=== PATIENT | male | born 1965 | race African-American/Black ===

== ENCOUNTER 2024-11-05 10:15 | Emergency (ER) | payer OTHER ==
[~2024-11-05] VITALS: Ht 177.8 cm; Wt 80.0 kg
[2024-11-05 10:19] VITALS: O2SAT 99
[2024-11-05 10:45] LABS: BASOPHILS % 0.3 % (0.0-2.0); EOSINOPHILS % 3.1 % (0.0-5.0); HEMATOCRIT. 45.3 % (42.0-52.0); HEMOGLOBIN. 14.6 g/dL (14.0-18.0); LYMPHOCYTES % 33.9 % (20.0-50.0); MEAN CORPUSCULAR HEMOGLOBIN 29.2 pg (28.0-32.0); MEAN CORPUSCULAR HGB CONC 32.2 g/dL (31.0-37.0); MEAN CORPUSCULAR VOLUME 90.8 fL (80.0-94.0); MEAN PLATELET VOLUME 8.1 fl (7.4-10.4); MONOCYTES % 11.3 % (2.0-8.0); NEUTROPHILS % 51.4 % (40.0-76.0); PLATELET 170 x1000/uL (130-400); RED BLOOD CELL COUNT 4.99 mill/uL (4.7-6.1); RED CELL DISTRIBUTION WIDTH 14.9 % (11.6-14.6); WHITE BLOOD COUNT 3.7 x1000/uL (4.5-11.0)
[2024-11-05 10:52] LABS: CHLORIDE 104 mEq/L (98-107); POTASSIUM 3.6 mEq/L (3.5-5.1); SODIUM 139 mEq/L (136-145)
[2024-11-05 10:53] LABS: CALCIUM 9.1 mg/dL (8.7-10.4); CARBON DIOXIDE 27 mEq/L (21-32)
[2024-11-05 10:58] LABS: CREATININE 0.7 mg/dL (0.6-1.3); GLUCOSE 88 mg/dL (70-105); UREA NITROGEN BLOOD 7 mg/dL (9-23)
[2024-11-05 11:00] LABS: TROPONIN I HIGH SENSITIVITY 4 ng/L (3.0-53)
[2024-11-05 12:45] VITALS: BP 183/107; PULSE 77; RESP 17; TEMP 36.8; O2SAT 100
[2024-11-05 12:54] LABS: TROPONIN I HIGH SENSITIVITY < 4 ng/L (3.0-53)
== END 2024-11-05 13:18 | disposition home or self-care (01) ==
LOC: ER 10:15
DX: R07.89 Other chest pain (principal); F17.200 Nicotine dependence, unspecified, uncomplicated; I11.0 Hypertensive heart disease with heart failure; I50.9 Heart failure, unspecified
CPT/HCPCS: 36415; 71045; 80048; 83880; 84484; 85025; 93005; 99285

== ENCOUNTER 2025-04-01 17:15 | Emergency (ER) | payer MEDICAID ==
[~2025-04-01] VITALS: Ht 172.7 cm; Wt 82.0 kg
[~2025-04-01 17:15] MED LIST: NIFE-32 MT
[2025-04-01 17:29] VITALS: O2SAT 98
[2025-04-01] MEDS: KETOROLAC 30MG/ML VIAL IM ONE (19:19)
[2025-04-01] MEDS: METHOCARBAMOL 500MG TABLET PO ONE (19:19)
[2025-04-01 19:34] LABS: BASOPHILS % 0.3 % (0.0-2.0); EOSINOPHILS % 1.5 % (0.0-5.0); HEMATOCRIT. 43.4 % (42.0-52.0); HEMOGLOBIN. 14.1 g/dL (14.0-18.0); LYMPHOCYTES % 32.0 % (20.0-50.0); MEAN PLATELET VOLUME 8.2 fl (7.4-10.4); MONOCYTES % 8.7 % (2.0-8.0); NEUTROPHILS % 57.5 % (40.0-76.0); PLATELET 196 x1000/uL (130-400); RED BLOOD CELL COUNT 4.73 mill/uL (4.7-6.1); RED CELL DISTRIBUTION WIDTH 13.2 % (11.6-14.6)
[2025-04-01 19:47] LABS: CREATININE 0.8 mg/dL (0.6-1.3)
[2025-04-01 19:48] LABS: ETHANOL BLOOD < 10 mg/dL (<10); UREA NITROGEN BLOOD 6 mg/dL (9-23)
[2025-04-01 19:49] LABS: ASPARTATE AMINOTRANSFERASE 24 IU/L (<34)
[2025-04-01 19:50] LABS: BILIRUBIN DIRECT 0.2 mg/dL (<=3.0); BILIRUBIN TOTAL 0.5 mg/dL (0.1-1.0); PROTEIN TOTAL 7.5 g/dL (6.0-8.3)
[2025-04-01 19:52] LABS: INR 1.0
[2025-04-01] MEDS ORDERED: IBUP-2029 MT (20:26)
[2025-04-01] MEDS ORDERED: LIDO700A30 TP (20:26)
[2025-04-01] MEDS ORDERED: METH-653 MT (20:26)
[2025-04-01] MEDS ORDERED: SULF1TAB48 MT (20:26)
[2025-04-01 20:42] VITALS: BP 151/97; PULSE 88; RESP 14; TEMP 36.8; O2SAT 99
== END 2025-04-01 20:45 | disposition home or self-care (01) ==
LOC: ER 17:15
DX: M54.40 Lumbago with sciatica, unspecified side (principal); F15.10 Other stimulant abuse, uncomplicated; I11.0 Hypertensive heart disease with heart failure; I50.9 Heart failure, unspecified; Z79.899 Other long term (current) drug therapy
CPT/HCPCS: 80076; 80048; 80320; 85025; 85610; 85730; 86850; 86900; 86901; 36415; 72131; 96372; 99285; J1885; Z7610; G0480